=== PATIENT | female | born 1995 | race Caucasian/White ===

== ENCOUNTER 2018-12-09 20:34 | Emergency (ER) | payer OTHER ==
[~2018-12-09] VITALS: Ht 160 cm; Wt 63.0 kg
[~2018-12-09 20:34] MED LIST: PRED20TA PO
[2018-12-09 20:41] VITALS: RESP 20; Ht 160 cm; Wt 63.0 kg
[2018-12-09] MEDS ORDERED: predniSONE 50 MG TAB PO ONE (22:00)
[2018-12-09 22:22] VITALS: BP 123/64; PULSE 76
[2018-12-09] MEDS ORDERED: predniSONE 20 MG TAB PO ONE (22:30)
== END 2018-12-09 22:29 | disposition home or self-care (01) ==
LOC: FTE 20:34
DX: R20.0 Anesthesia of skin (principal); G51.0 Bell's palsy
CPT/HCPCS: 81025; J7512; 99283